=== PATIENT | male | born 1995 | race Caucasian/White ===

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

== ENCOUNTER → 2017-04-08 | Outpatient (CLI) | payer BC ==
[2017-04-08] MEDS: LIDOCAINE 1% Multi-Dose 20 ML VIAL. ID ×2 (13:35)
[2017-04-08] MEDS: GADOBUTROL 7.5 MMOL/7.5 ML VIAL INT ART ×2 (13:35)
[2017-04-08] MEDS: IOHEXOL 300 MG/ML 10ML VIAL. INT ART ×2 (13:35)
== END | disposition home or self-care (01) ==
LOC: KCIC 12:34
DX: S43.492A Other sprain of left shoulder joint, initial encounter (principal); M25.812 Other specified joint disorders, left shoulder; X50.0XXA Overexertion from strenuous movement or load, initial encounter; Y93.89 Activity, other specified; Y92.89 Other specified places as the place of occurrence of the external cause; Y99.8 Other external cause status
CPT/HCPCS: 73040; 73222; A9585; Q9967

== ENCOUNTER 2017-05-19 11:13 | Day surgery (SDC) | payer BC ==
[~2017-05-19 11:13] MED LIST changes: -DOXY100C14 PO; -HYDROmorphone 2 MG/ML VIAL IV PRN; -IV RINGERS,LACTATED 1000ML 1,000 ML IV SCH; -LIDOCAINE 1% 1 ML SYRINGE. ID PRN; +LIDOCAINE 1% PF 2 ML VIAL. ID; -MORPHINE SULFATE 2 MG/ML DISP.SYRIN. IV PRN; +MORPHINE SULFATE 4 MG/ML DISP.SYRIN. IV; +ONDANSETRON PF 4 MG/2 ML VIAL. IV; -ONDANSETRON PF 4 MG/2 ML VIAL. IV PRN; +PROCHLORPERAZINE 10 MG/2 ML VIAL. IV; -PROCHLORPERAZINE 10 MG/2 ML VIAL. IV PRN; -PROPOFOL 40 ML IV ONE; +fentaNYL PF VIAL 100 MCG/2 ML VIAL IV; -fentaNYL PF VIAL 100 MCG/2 ML VIAL IV PRN
[2017-05-19] MEDS: IV RINGERS,LACTATED 1000ML 1,000 ML IV (12:09)
[2017-05-19] MEDS: EPINEPHrine VIAL 30 MG/30 ML VIAL (12:44)
[2017-05-19] MEDS ORDERED: ROPIVacaine 0.5% PF 30 ML VIAL. (13:28)
[2017-05-19] MEDS ORDERED: fentaNYL PF VIAL 100 MCG/2 ML VIAL (13:33)
[2017-05-19] MEDS ORDERED: ROCURONIUM 100 MG/10 ML VIAL. (13:33)
[2017-05-19] MEDS ORDERED: PROPOFOL 20 ML IV (13:33)
[2017-05-19] MEDS ORDERED: DEXAMETHASONE SOD PHOS 20 MG/5 ML VIAL. (13:33)
[2017-05-19] MEDS ORDERED: ONDANSETRON PF 4 MG/2 ML VIAL. (13:33)
[2017-05-19] MEDS ORDERED: MIDAZOLAM HCL/PF 2 MG/2 ML VIAL. (13:34)
[2017-05-19] MEDS ORDERED: FAMOTIDINE 20 MG/2 ML VIAL (13:53)
[2017-05-19] MEDS ORDERED: SEVOFLURANE > 120 MINUTES. IH (15:42)
[2017-05-19] MEDS ORDERED: oxyCODONE/APAP 7.5/325 1 TAB TABLET PO (16:30)
[2017-05-19] MEDS: oxyCODONE/APAP 7.5/325 1 TAB TABLET PO (16:50)
== END 2017-05-19 17:28 | disposition home or self-care (01) ==
LOC: SURG 11:13
DX: S43.492A Other sprain of left shoulder joint, initial encounter (principal); M25.812 Other specified joint disorders, left shoulder; X58.XXXA Exposure to other specified factors, initial encounter; Y93.89 Activity, other specified; Y92.89 Other specified places as the place of occurrence of the external cause; Y99.8 Other external cause status; K08.409 Partial loss of teeth, unspecified cause, unspecified class; Z79.899 Other long term (current) drug therapy
CPT/HCPCS: 29806; C1713; J0171; J0690; J1100; J2250; J2405; J2704; J2795; J3010; S0028